=== PATIENT | male | born 1995 ===

== ENCOUNTER 2020-07-31 06:23 | Emergency (ER) | payer SELFPAY ==
[2020-07-31] MEDS ORDERED: Sodium Chloride 0.9% 2.5 ML Syringe FLUSH PRN ×2 (06:30→06:44)
[2020-07-31] MEDS ORDERED: Sodium Chloride 0.9% 10 ML Syringe FLUSH PRN ×2 (06:30→06:44)
--- NOTE | 2020-07-31 06:31 | EDM.PDOC ---
<Eliezer Machuca - Last Filed: 07/31/20 06:48> ED HPI GENERAL MEDICAL PROBLEM - General Chief Complaint: Abdominal Pain Stated Complaint: ABDOMINAL PAIN Time Seen by Provider: 07/31/20 06:29 - History of Present Illness INITIAL COMMENTS - FREE TEXT/NARRATIVE: History of present illness: [] Patient has pain in the left lower quadrant of his abdomen. He woke up feeling came in gradually pain started in the left lower quadrant of the abdomen since grown back crescendoing develops almost unbearable and severe. The patient has no nausea and vomiting. He has relative anorexia. He is not diaphoretic or febrile. The patient never had this pain before does not go anywhere. It is very severe. It hurts to push on it. It does not hurt to move or breathe. He has constipation recently and it is increasingly hard for him to make a normal stool. The patient has no diarrhea and no dysuria. Review of systems: As per history of present illness and below otherwise all systems reviewed and negative. Past medical history: As per history of present illness and as reviewed below otherwise noncontributory. Surgical history: As per history of present illness and as reviewed below otherwise noncontr ibutory. Social history: No reported history of drug or alcohol abuse. Family history: As per history of present illness and as reviewed below otherwise noncontributory. Physical exam: Constitutional - well developed, well-nourished and in no acute distress HEENT - normocephalic, no evidence of trauma - external nose and mouth normal - no mass in neck and no JVD - mucosae moist EYES - full EOM, PERRL, no icterus - no evidence of inflammation, injection, or drainage Respiratory - no respiratory distress, equal bilateral expansion, lungs clear to auscultation and no abnormal lung sounds Cardiovascular - Regular Rhythm with S1 and S2 appreciated and no murmur, gallop or rub. GI - abdomen soft without distension or organomegaly - normal bowel sounds - no guard or rebound-isolated tenderness in the left lower quadrant. -normal external genitalia with no hernia. Musculoskeletal no gross deformity of long bones or joints - no tenderness, swelling or edema Neurologic - Alert and oriented times four - CN II-XII grossly intact - motor sensory and coordination symmetrically normal Psychiatric - appropriate mood and affect with normal thought content Hematologic - No petechiae or purpura - mucosa appropriate color and sclera not pale - normal nail bed color and refill Integument - no rash or evidence of trauma - normal turgor Diagnostics: [] Therapeutics: [] Impression: [] Plan: [] Definitive disposition and diagnosis as appropriate pending reevaluation and review of above. Abdomen Pain Score (Numeric/FACES): 8 - Related Data Allergies Allergy/AdvReac Type Severity Reaction Status Date / Time No Known Allergies Allergy Verified 07/31/20 06:40 Home Meds: Home Meds Ibuprofen 600 mg PO Q6HR PRN #30 tablet 07/31/20 [Rx] Ondansetron [Zofran ODT] 4 mg PO Q6H PRN #12 tab.dis 07/31/20 [Rx] Tamsulosin HCl [Flomax] 0.4 mg PO BEDTIME #7 cap.er.24h 07/31/20 [Rx] traMADol [Ultram] 50 mg PO Q6H PRN #12 tab 07/31/20 [Rx] Departure - Departure Disposition: Home, Self-Care 01 Clinical Impression: Hydroureteronephrosis, Renal colic on left side - Discharge Information Instructions: Renal Colic, [id number], Kidney Stones, [id number] Referrals: PCP,None [Primary Care Provider] - Forms: ED Department Discharge Additional Instructions: You were seen and evaluated in ER today secondary to pain in your abdomen which is determined to be secondary to a 4.7 mm kidney stone that was lodged in your mid left ureter causing swelling of your kidney and your ureter. Kidney stones the size have a high success rate of passing on their own with hydration and pain medicines. He will be given a prescription for ibuprofen, Zofran, Ultram, and Flomax to take to help you pass your stone. You will be given the phone number for Dr. Wolf our urologist for further follow-up as an outpatient. The following information is given to patients seen in the emergency department who are being discharged to home. This information is to outline your options for follow-up care. We provide all patients seen in our emergency department with a follow-up referral. The need for follow-up, as well as the timing and circumstances, are variable depending upon the specifics of your emergency department visit. If you don't have a primary care physician on staff, we will provide you with a referral. We always advise you to contact your personal physician following an emergency department visit to inform them of the circumstance of the visit and for follow-up with them and/or the need for any referrals to a consulting specialist. The emergency department will also refer you to a specialist when appropriate. This referral assures that you have the opportunity for follow-up care with a specialist. All of these measure are taken in an effort to provide you with optimal care, which includes your follow-up. Under all circumstances we always encourage you to contact your private physician who remains a resource for coordinating your care. When calling for follow-up care, please make the office aware that this follow-up is from your recent emergency room visit. If for any reason you are refused follow-up, please contact the [facility] Emergency Department at and asked to speak to the emergency department charge nurse. [facility] - [facility] [address] [place] [id number] [place] [address] <Jefry Delcid - Last Filed: 07/31/20 08:26> ED HPI GENERAL MEDICAL PROBLEM - History of Present Illness INITIAL COMMENTS - FREE TEXT/NARRATIVE: 8:20 AM: Signout received at [address] Machuca note above for complete presentation history and physical. Patient presented to the ER today with acute onset of colicky pain to his left side in his back radiating to his left groin. Patient's urinalysis shows positive blood and a CT scan reveals left-sided hydronephrosis and hydroureter with a 4.7 mm stone in the mid left ureter. Otherwise no acute abnormality was appreciated. On reevaluation, the patient currently is pain-free and appears to be comfortable. Patient's pain appears to be secondary to renal colic with a 4.7 mm stone. Patient be discharged home with follow-up with Dr. Wolf. Patient be given ibuprofen, Zofran, Flomax, and Ultram to assist with pain and discomfort. Patient be given a strainer. Abd: Soft, nondistended, no rebound/guarding, no psoas or obturator signs, no tenderness at Mcberney's point, no Guerin's sign. Pt does not present with an exam that would be consistent with an acute surgical abdomen at this time, nontender to palpation Reassessment at the time of disposition demonstrates that the patient is in no acute distress. The patient has remained stable throughout the entire ED visit and is without objective evidence for acute process requiring urgent intervention or hospitalization. The patient is stable for discharge, counseling is provided as documented above, discussed symptomatic treatment and specific conditions for return. I have spoken with the patient/caregiver and discussed todays findings, in addition to providing specific details for the plan of care. Questions are answered and there is agreement with the plan. ED ROS GENERAL - Review of Systems Review Of Systems: See Below ED EXAM, GENERAL - Physical Exam Exam: See Below Course - Vital Signs Last Recorded V/S: Last Vital Signs Temp 96.5 F L 07/31/20 06:35 Pulse 51 L 07/31/20 07:38 Resp 16 07/31/20 07:38 BP 111/60 07/31/20 07:38 Pulse Ox 98 07/31/20 07:38 - Orders/Labs/Meds Orders: Active Orders 24 hr Category Date Time Status Sodium Chloride 0.9% [Saline Flush] Med 07/31/20 06:30 Active 10 ml FLUSH ASDIRECTED PRN Sodium Chloride 0.9% [Saline Flush] Med 07/31/20 06:30 Active 2.5 ml FLUSH ASDIRECTED PRN Saline Lock Insert [OM.PC] Stat Oth 07/31/20 06:30 Ordered Medication Orders Sodium Chloride (Sodium Chloride 0.9% 10 Ml Syringe) 10 ml FLUSH ASDIRECTED PRN PRN Reason: Keep Vein Open Sodium Chloride (Sodium Chloride 0.9% 2.5 Ml Syringe) 2.5 ml FLUSH ASDIRECTED PRN PRN Reason: Keep Vein Open Labs: Laboratory Tests 07/31/20 07/31/20 07/31/20 Range/Units 06:35 06:35 06:50 WBC 4.51 (4.0-11.0) K/uL RBC 5.23 (4.50-5.90) M/uL Hgb 16.1 (13.0-17.0) g/dL Hct 46.6 (38.0-50.0) % MCV 89.1 (80.0-98.0) fL MCH 30.8 (27.0-32.0) pg MCHC 34.5 (31.0-37.0) g/dL RDW Std Deviation 42.9 (28.0-62.0) fl RDW Coeff of Daksha 13 (11.0-15.0) % Plt Count 199 (150-400) K/uL MPV 11.20 (7.40-12.00) fL Neut % (Auto) 58.2 (48.0-80.0) % Lymph % (Auto) 30.2 (16.0-40.0) % [place] % (Auto) 8.2 (0.0-15.0) % Eos % (Auto) 2.7 (0.0-7.0) % Baso % (Auto) 0.7 (0.0-1.5) % Neut # (Auto) 2.6 (1.4-5.7) K/uL Lymph # (Auto) 1.4 (0.6-2.4) K/uL [place] # (Auto) 0.4 (0.0-0.8) K/uL Eos # (Auto) 0.1 (0.0-0.7) K/uL Baso # (Auto) 0.0 (0.0-0.1) K/uL Nucleated RBC % 0.0 /100WBC Nucleated RBCs # 0 K/uL Sodium 143 (136-148) mmol/L Potassium 4.3 (3.5-5.1) mmol/L Chloride 105 (98-107) mmol/L Carbon Dioxide 28.5 (21.0-32.0) mmol/L BUN 17 (7.0-18.0) mg/dL Creatinine 1.1 (0.8-1.3) mg/dL Est Cr Clr Drug Dosing 97.08 mL/min Estimated GFR (MDRD) > 60.0 ml/min Glucose 119 H (74-106) mg/dL Lactic Acid 1.5 (0.4-2.0) mmol/L Calcium 9.1 (8.5-10.1) mg/dL Total Bilirubin 0.7 (0.2-1.0) mg/dL AST 22 (15-37) IU/L ALT 50 (14-63) IU/L Alkaline Phosphatase 63 (46-116) U/L Total Protein 7.5 (6.4-8.2) g/dL Albumin 4.2 (3.4-5.0) g/dL Globulin 3.3 (2.6-4.0) g/dL Albumin/Globulin Ratio 1.3 (0.9-1.6) Lipase 51 L (73-393) U/L Urine Color Urine Appearance Urine pH (5.0-8.0) Ur Specific Bl[place] (1.001-1.035) Urine Protein (NEGATIVE) mg/dL Urine Glucose (UA) (NEGATIVE) mg/dL Urine Ketones (NEGATIVE) mg/dL Urine Occult Blood (NEGATIVE) Urine Nitrite (NEGATIVE) Urine Bilirubin (NEGATIVE) Urine Ictotest Urine Urobilinogen (<2.0) EU/dL Ur Leukocyte Esterase (NEGATIVE) Urine RBC (0-2/HPF) Urine WBC (0-5/HPF) Ur Epithelial Cells (NONE-FEW) Urine Bacteria (NEGATIVE) Urine Mucus (NONE-MOD) 07/31/20 Range/Units 07:57 WBC (4.0-11.0) K/uL RBC (4.50-5.90) M/uL Hgb (13.0-17.0) g/dL Hct (38.0-50.0) % MCV (80.0-98.0) fL MCH (27.0-32.0) pg MCHC (31.0-37.0) g/dL RDW Std Deviation (28.0-62.0) fl RDW Coeff of [place]sha (11.0-15.0) % Plt Count (150-400) K/uL MPV (7.40-12.00) fL Neut % (Auto) (48.0-80.0) % Lymph % (Auto) (16.0-40.0) % [place] % (Auto) (0.0-15.0) % Eos % (Auto) (0.0-7.0) % Baso % (Auto) (0.0-1.5) % Neut # (Auto) (1.4-5.7) K/uL Lymph # (Auto) (0.6-2.4) K/uL [place] # (Auto) (0.0-0.8) K/uL Eos # (Auto) (0.0-0.7) K/uL Baso # (Auto) (0.0-0.1) K/uL Nucleated RBC % /100WBC Nucleated RBCs # K/uL Sodium (136-148) mmol/L Potassium (3.5-5.1) mmol/L Chloride (98-107) mmol/L Carbon Dioxide (21.0-32.0) mmol/L BUN (7.0-18.0) mg/dL Creatinine (0.8-1.3) mg/dL Est Cr Clr Drug Dosing mL/min Estimated GFR (MDRD) ml/min Glucose (74-106) mg/dL Lactic Acid (0.4-2.0) mmol/L Calcium (8.5-10.1) mg/dL Total Bilirubin (0.2-1.0) mg/dL AST (15-37) IU/L ALT (14-63) IU/L Alkaline Phosphatase (46-116) U/L Total Protein (6.4-8.2) g/dL Albumin (3.4-5.0) g/dL Globulin (2.6-4.0) g/dL Albumin/Globulin Ratio (0.9-1.6) Lipase (73-393) U/L Urine Color YELLOW Urine Appearance CLEAR Urine pH 6.5 (5.0-8.0) Ur Specific [place] 1.025 (1.001-1.035) Urine Protein 30 H (NEGATIVE) mg/dL Urine Glucose (UA) NEGATIVE (NEGATIVE) mg/dL Urine Ketones NEGATIVE (NEGATIVE) mg/dL Urine Occult Blood LARGE H (NEGATIVE) Urine Nitrite NEGATIVE (NEGATIVE) Urine Bilirubin SMALL H (NEGATIVE) Urine Ictotest NEGATIVE Urine Urobilinogen 0.2 (<2.0) EU/dL Ur Leukocyte Esterase NEGATIVE (NEGATIVE) Urine RBC NONE SEEN (0-2/HPF) Urine WBC 0-1 (0-5/HPF) Ur Epithelial Cells OCCASIONAL (NONE-FEW) Urine Bacteria 1+ H (NEGATIVE) Urine Mucus LIGHT (NONE-MOD) Meds: Medications Generic Name Dose Route Start Last Admin Trade Name Freq PRN Reason Stop Dose Admin Sodium Chloride 10 ml 07/31/20 06:30 Sodium Chloride 0.9% 10 Ml Syringe FLUSH ASDIRECTED PRN Keep Vein Open Sodium Chloride 2.5 ml 07/31/20 06:30 Sodium Chloride 0.9% 2.5 Ml Syringe FLUSH ASDIRECTED PRN Keep Vein Open Discontinued Medications Generic Name Dose Route Start Last Admin Trade Name Kennedi PRN Reason Stop Dose Admin Fentanyl 50 mcg 07/31/20 06:44 07/31/20 06:55 Fentanyl 50 Mcg/Ml Sdv IVPUSH 07/31/20 06:45 50 mcg ONETIME ONE Administration Sodium Chloride 1,000 mls @ 1,000 mls/hr 07/31/20 06:47 07/31/20 06:55 Normal Saline IV 07/31/20 07:46 1,000 mls/hr .Bolus ONE Administration Ketorolac Tromethamine 15 mg 07/31/20 06:44 07/31/20 06:58 Ketorolac 15 Mg/Ml Sdv IM 07/31/20 06:45 Not Given ONETIME ONE Ketorolac Tromethamine 15 mg 07/31/20 06:48 07/31/20 06:57 Ketorolac 30 Mg/Ml Sdv IVPUSH 07/31/20 06:49 Not Given ONETIME ONE Ketorolac Tromethamine 15 mg 07/31/20 06:56 07/31/20 06:56 Ketorolac 15 Mg/Ml Sdv IVPUSH 07/31/20 06:57 15 mg NOW STA Administration Ondansetron HCl 4 mg 07/31/20 06:44 07/31/20 06:55 Ondansetron 4 Mg/2 Ml Sdv IVPUSH 07/31/20 06:45 4 mg ONETIME ONE Administration Sodium Chloride 10 ml 07/31/20 06:44 Sodium Chloride 0.9% 10 Ml Syringe FLUSH ASDIRECTED PRN Keep Vein Open Sodium Chloride 2.5 ml 07/31/20 06:44 Sodium Chloride 0.9% 2.5 Ml Syringe FLUSH ASDIRECTED PRN Keep Vein Open Tamsulosin HCl 0.4 mg 07/31/20 07:52 Tamsulosin 0.4 Mg Cap.Er PO 07/31/20 07:53 ONETIME ONE Departure - Departure Time of Disposition: 08:23 Condition: Good Sepsis Event Note (ED) - Focused Exam Vital Signs: Vital Signs Temp Pulse Resp BP Pulse Ox 07/31/20 07:38 51 L 16 111/60 98 07/31/20 06:35 96.5 F L 60 18 139/85 97
[2020-07-31] MEDS ORDERED: fentaNYL 50 MCG/ML SDV IVPUSH ONE (06:44)
[2020-07-31] MEDS ORDERED: Ondansetron 4 MG/2 ML SDV IVPUSH ONE (06:44)
[2020-07-31] MEDS ORDERED: Ketorolac 15 MG/ML SDV IM ONE (06:44)
[2020-07-31] MEDS ORDERED: Sodium Chloride 0.9% 1,000 ML IV ONE (06:47)
[2020-07-31] MEDS ORDERED: Ketorolac 30 MG/ML SDV IVPUSH ONE (06:48)
[2020-07-31] MEDS ORDERED: Ketorolac 15 MG/ML SDV IVPUSH STA (06:56)
[2020-07-31 07:15] LABS: BLOOD UREA NITROGEN,BUN 17 mg/dL (7.0-18.0); CARBON DIOXIDE,CO2 28.5 mmol/L (21.0-32.0); CHLORIDE,CL 105 mmol/L (98-107); GLUCOSE RANDOM 119 mg/dL (74-106); LIPASE 51 U/L (73-393); POTASSIUM,K 4.3 mmol/L (3.5-5.1); SODIUM,NA 143 mmol/L (136-148)
--- NOTE | 2020-07-31 07:29 | CT ---
For Patients: As a result of the Century Cures Act, medical imaging exams and procedure reports are released immediately into your electronic medical record. You may view this report before your referring provider. If you have questions, please contact your health care provider. Indication: Left lower quadrant pain Technique: Volumetric multidetector CT images of the abdomen and pelvis were without the administration of intravenous contrast. Comparison: None available. Findings: The lung bases are clear. The liver is normal in attenuation without intrahepatic biliary ductal dilatation. The gallbladder is unremarkable without evidence of radiopaque calculus. There is no significant common biliary ductal dilatation or abrupt cut off. The spleen is normal in attenuation and size. The stomach and duodenum are grossly unremarkable. The pancreas is normal in attenuation without significant atrophy. The adrenal glands are unremarkable. There is left-sided hydronephrosis and hydroureter with demonstration of a 4.7 millimeter calculus in the mid left ureter with associated hydronephrosis. The right collecting system is grossly unremarkable. There is moderate stool seen throughout the colon with mild to moderate colonic diverticulosis without evidence of diverticulitis. The appendix is unremarkable. There is no significant mesenteric, retroperitoneal, or pelvic sidewall lymph nodes. The aorta is nonaneurysmal. There is no significant atherosclerotic disease appreciated. The solid pelvic viscera are grossly unremarkable. There is no free fluid or free air. There is a small fat containing umbilical hernia otherwise there is mild diastasis of the rectus musculature. The lumbar vertebral body heights are grossly maintained in satisfactory alignment without evidence of displaced fracture, lytic or blastic lesion. Impression: Left-sided hydronephrosis and hydroureter with a 4.7 millimeter calculus in the midleft ureter. Otherwise no acute abnormality is appreciated. Please note that all CT scans at this facility use dose modulation, iterative reconstruction, and/or weight-based dosing when appropriate to reduce radiation dose to as low as reasonably achievable. Dictated by Morgan Bellamy MD @ 07/31/2020 7:27:[address] Morgan Bellamy @ Jul 31 2020 7:27AM
[2020-07-31] MEDS ORDERED: Tamsulosin 0.4 MG Cap.ER PO ONE (07:52)
== END 2020-07-31 08:42 | disposition home or self-care (01) ==
LOC: MW.ED 06:23
DX: N13.2 Hydronephrosis with renal and ureteral calculous obstruction (principal)
CPT/HCPCS: 36415; 74176; 80053; 81001; 83605; 83690; 85025; 96374; 96375; 99284; A9270; J1885; J2405; J3010; J7030

== ENCOUNTER 2020-09-06 07:39 | Emergency (ER) | payer SELFPAY ==
[2020-09-06] MEDS ORDERED: Ketorolac 15 MG/ML SDV IVPUSH ONE (08:01)
[2020-09-06] MEDS ORDERED: Sodium Chloride 0.9% 1,000 ML IV ONE (08:01)
[2020-09-06] MEDS ORDERED: Ondansetron 4 MG/2 ML SDV IVPUSH ONE (08:01)
[2020-09-06] MEDS ORDERED: Sodium Chloride 0.9% 10 ML Syringe FLUSH PRN (08:01)
[2020-09-06] MEDS ORDERED: Sodium Chloride 0.9% 2.5 ML Syringe FLUSH PRN (08:01)
--- NOTE | 2020-09-06 08:08 | EDM.PDOC ---
ED HPI GENERAL MEDICAL PROBLEM - General Chief Complaint: Flank Pain Stated Complaint: kidney stone Time Seen by Provider: 09/06/20 07:56 - History of Present Illness INITIAL COMMENTS - FREE TEXT/NARRATIVE: History of present illness: [] This patient was seen by myself on 05 August diagnosed with a left ureteral stone with colic. He had several days of pain that required narcotic pain medicine and then he felt better in the interim until 2 or 3 days ago he began to have excruciating pain in the left lower quadrant with nausea and inability to tolerate p.o. food or fluids. He has not urinated today. The pain is severe in the left hypogastrium without radiation to the testicle or the flank. 2 days ago he had a CT repeat and the stone was quite a bit larger over 6 mm at the UVJ and had not moved much since KUB prior visit. He went to [place] yesterday because we have no urologist in town he was referred to Dr. Jie Tran. He has not been able to see her yet. He is basically for 3 days been incapacitated by the pain and nausea. Review of systems: As per history of present illness and below otherwise all systems reviewed and negative. Past medical history: As per history of present illness and as reviewed below otherwise noncontributory. Surgical history: As per history of present illness and as reviewed below otherwise noncontributory. Social history: No reported history of drug or alcohol abuse. Family history: As per history of present illness and as reviewed below otherwise noncontributory. Physical exam: Constitutional - well developed, well-nourished and in moderate acute distress HEENT - normocephalic, no evidence of trauma - external nose and mouth normal - no mass in neck and no JVD - mucosae moist EYES - full EOM, PERRL, no icterus - no evidence of inflammation, injection, or drainage Respiratory - no respiratory distress, equal bilateral expansion, lungs clear to auscultation and no abnormal lung sounds Cardiovascular - Regular Rhythm with S1 and S2 appreciated and no murmur, gallop or rub. GI - abdomen soft without distension or organomegaly - normal bowel sounds - no guard or rebound Musculoskeletal no gross deformity of long bones or joints - no tenderness, swelling or edema Neurologic - Alert and oriented times four - CN II-XII grossly intact - motor sensory and coordination symmetrically normal Psychiatric - appropriate mood and affect with normal thought content Hematologic - No petechiae or purpura - mucosa appropriate color and sclera not pale - normal nail bed color and refill Integument - no rash or evidence of trauma - normal turgor Diagnostics: [] Therapeutics: [] Impression: [] Plan: [] Definitive disposition and diagnosis as appropriate pending reevaluation and review of above. flank Pain Score (Numeric/FACES): 10 - Related Data Allergies Allergy/AdvReac Type Severity Reaction Status Date / Time No Known Allergies Allergy Verified 09/06/20 07:57 Home Meds: Home Meds Ibuprofen 600 mg PO Q6HR PRN #30 tablet 07/31/20 [Rx] Ondansetron [Zofran ODT] 4 mg PO Q6H PRN #12 tab.dis 07/31/20 [Rx] Tamsulosin HCl [Flomax] 0.4 mg PO BEDTIME #7 cap.er.24h 07/31/20 [Rx] traMADol [Ultram] 50 mg PO Q6H PRN #12 tab 07/31/20 [Rx] Acetaminophen/oxyCODONE [Percocet 325-5 MG] 1 - 2 each PO Q4H PRN #30 tab 09/06/20 [Rx] Ondansetron [Zofran ODT] 4 mg PO Q6H PRN #15 tab.dis 09/06/20 [Rx] Past Medical History HEENT History: Reports: None Cardiovascular History: Reports: None Respiratory History: Reports: None Gastrointestinal History: Reports: None Genitourinary History: Reports: None Musculoskeletal History: Reports: None Neurological History: Reports: None Psychiatric History: Reports: None Endocrine/Metabolic History: Reports: None Insulin Pump Model and Residential Life Director: None Hematologic History: Reports: None Immunologic History: Reports: None Oncologic (Cancer) History: Reports: None Dermatologic History: Reports: None - Infectious Disease History Infectious Disease History: Reports: None - Past Surgical History Head Surgeries/Procedures: Reports: None Other Male Surgeries/Procedures: Kidney Stones Social & Family History - Tobacco Use Tobacco Use Status *Q: Never Tobacco User - Caffeine Use Caffeine Use: Reports: Energy Drinks - Recreational Drug Use Recreational Drug Use: No ED ROS GENERAL - Review of Systems Review Of Systems: Comprehensive ROS is negative, except as noted in HPI. ED EXAM, GENERAL - Physical Exam Exam: See Below Free Text/Narrative:: My physical exam is in the HPI Course - Vital Signs Text/Narrative:: 8:27 AM patient's pain is not improved. 12:02 PM the patient's pain was improved for bed but it is creeping back up. When I just talked him at 7 out of 10 1 on arrival was 10 out of 10. I have discussed the case with the staff at the urology clinic in my not. They intend to see the patient the day that he arrives in the emergency department. Yesterday when he got there he got a little better and the ER doctor did not contact the neurologist directly. I am waiting for callback to see if Dr. Tran can see the patient today. 1413 p.m. the patient has continual recurrent pain. I reviewed his recent discharge and he was given tramadol prescription. Discussed with Dr. Tran and she is booked in the OR in both in the clinic and overbooked in fact. She said she can get a man on the or and taken to the OR on the of this month. So that he might stay overnight for observation and be taken care of with one trip to [place] she gave him an appointment for 1315 hrs. at 14 September and will schedule OR time for the . Last Recorded V/S: Last Vital Signs Temp 36.6 C 09/06/20 07:56 Pulse 77 09/06/20 07:56 Resp 18 09/06/20 07:56 BP 144/85 H 09/06/20 07:56 Pulse Ox 100 09/06/20 07:56 - Orders/Labs/Meds Orders: Active Orders 24 hr Category Date Time Status Sodium Chloride 0.9% [Saline Flush] Med 09/06/20 08:01 Active 10 ml FLUSH ASDIRECTED PRN Sodium Chloride 0.9% [Saline Flush] Med 09/06/20 08:01 Active 2.5 ml FLUSH ASDIRECTED PRN Saline Lock Insert [OM.PC] Stat Oth 09/06/20 08:01 Ordered Medication Orders Sodium Chloride (Sodium Chloride 0.9% 10 Ml Syringe) 10 ml FLUSH ASDIRECTED PRN PRN Reason: Keep Vein Open Last Admin: 09/06/20 08:14 Dose: 10 ml Documented by: ALEXUS Sodium Chloride (Sodium Chloride 0.9% 2.5 Ml Syringe) 2.5 ml FLUSH ASDIRECTED PRN PRN Reason: Keep Vein Open Last Admin: 09/06/20 08:14 Dose: 2.5 ml Documented by: ALEXUS Labs: Laboratory Tests 09/06/20 09/06/20 09/06/20 Range/Units 08:22 08:22 10:10 WBC 7.37 (4.0-11.0) K/uL RBC 5.09 (4.50-5.90) M/uL Hgb 15.8 (13.0-17.0) g/dL Hct 45.6 (38.0-50.0) % MCV 89.6 (80.0-98.0) fL MCH 31.0 (27.0-32.0) pg MCHC 34.6 (31.0-37.0) g/dL RDW Std Deviation 42.7 (28.0-62.0) fl RDW Coeff of Daksha 13 (11.0-15.0) % Plt Count 201 (150-400) K/uL MPV 10.50 (7.40-12.00) fL Neut % (Auto) 82.0 H (48.0-80.0) % Lymph % (Auto) 11.9 L (16.0-40.0) % Rankin % (Auto) 5.4 (0.0-15.0) % Eos % (Auto) 0.4 (0.0-7.0) % Baso % (Auto) 0.3 (0.0-1.5) % Neut # (Auto) 6.0 H (1.4-5.7) K/uL Lymph # (Auto) 0.9 (0.6-2.4) K/uL Rankin # (Auto) 0.4 (0.0-0.8) K/uL Eos # (Auto) 0.0 (0.0-0.7) K/uL Baso # (Auto) 0.0 (0.0-0.1) K/uL Nucleated RBC % 0.0 /100WBC Nucleated RBCs # 0 K/uL Sodium 144 (136-148) mmol/L Potassium 4.0 (3.5-5.1) mmol/L Chloride 104 (98-107) mmol/L Carbon Dioxide 29.9 (21.0-32.0) mmol/L BUN 14 (7.0-18.0) mg/dL Creatinine 1.2 (0.8-1.3) mg/dL Est Cr Clr Drug Dosing 91.95 mL/min Estimated GFR (MDRD) > 60.0 ml/min Glucose 101 (74-106) mg/dL Calcium 9.1 (8.5-10.1) mg/dL Urine Color DARK YELLOW Urine Appearance CLEAR Urine pH 8.5 H (5.0-8.0) Ur Specific [place] 1.020 (1.001-1.035) Urine Protein 100 H (NEGATIVE) mg/dL Urine Glucose (UA) NEGATIVE (NEGATIVE) mg/dL Urine Ketones 15 H (NEGATIVE) mg/dL Urine Occult Blood LARGE H (NEGATIVE) Urine Nitrite NEGATIVE (NEGATIVE) Urine Bilirubin SMALL H (NEGATIVE) Urine Ictotest NEGATIVE Urine Urobilinogen 1.0 (<2.0) EU/dL Ur Leukocyte Esterase TRACE H (NEGATIVE) Urine RBC 10-15 (0-2/HPF) Urine WBC 0-2 (0-5/HPF) Ur Epithelial Cells RARE (NONE-FEW) Urine Bacteria FEW (NEGATIVE) Urine Mucus HEAVY (NONE-MOD) Meds: Medications Generic Name Dose Route Start Last Admin Trade Name Freregina PRN Reason Stop Dose Admin Sodium Chloride 10 ml 09/06/20 08:01 09/06/20 08:14 Sodium Chloride 0.9% 10 Ml Syringe FLUSH 10 ml ASDIRECTED PRN Administration Keep Vein Open Sodium Chloride 2.5 ml 09/06/20 08:01 09/06/20 08:14 Sodium Chloride 0.9% 2.5 Ml Syringe FLUSH 2.5 ml ASDIRECTED PRN Administration Keep Vein Open Discontinued Medications Generic Name Dose Route Start Last Admin Trade Name Freq PRN Reason Stop Dose Admin Hydromorphone HCl 1 mg 09/06/20 08:27 09/06/20 08:31 Hydromorphone 1 Mg/Ml Syringe IVPUSH 09/06/20 08:28 1 mg ONETIME ONE Administration Hydromorphone HCl 0.5 mg 09/06/20 12:01 09/06/20 12:06 Hydromorphone 2 Mg/Ml Syringe IVPUSH 09/06/20 12:02 0.5 mg ONETIME ONE Administration Sodium Chloride 1,000 mls @ 1,000 mls/hr 09/06/20 08:01 09/06/20 08:13 Normal Saline IV 09/06/20 09:00 1,000 mls/hr .Bolus ONE Administration Ketorolac Tromethamine 15 mg 09/06/20 08:01 09/06/20 08:13 Ketorolac 15 Mg/Ml Sdv IVPUSH 09/06/20 08:02 15 mg ONETIME ONE Administration Ondansetron HCl 4 mg 09/06/20 08:01 09/06/20 08:14 Ondansetron 4 Mg/2 Ml Sdv IVPUSH 09/06/20 08:02 4 mg ONETIME ONE Administration Departure - Departure Time of Disposition: 14:14 Disposition: Home, Self-Care 01 Condition: Good Clinical Impression: Ureteric colic - Discharge Information Prescriptions: Acetaminophen/oxyCODONE [Percocet 325-5 MG] 1 - 2 each PO Q4H PRN #30 tab PRN Reason: Pain (Severe 7-10) Ondansetron [Zofran ODT] 4 mg PO Q6H PRN #15 tab.dis PRN Reason: Nausea/Vomiting Referrals: PCP,None [Primary Care Provider] - Jie Tran DO [Ordering Only Provider] - Forms: ED Department Discharge Additional Instructions: Dr. Tran can take you to the OR and get rid of your stone on the of this month. She said you can come on the at 1315 to her office and she will put you in observation overnight in my not and then take care of your stone. Her number [phone] and she wants to see you at 1315 hrs. on the at the [facility]. [facility] [address] [place] [id number] [facility] [address] [place] [id number] The following information is given to patients seen in the emergency department who are being discharged to home. This information is to outline your options for follow-up care. We provide all patients seen in our emergency department with a follow-up referral. The need for follow-up, as well as the timing and circumstances, are variable depending upon the specifics of your emergency department visit. If you don't have a primary care physician on staff, we will provide you with a referral. We always advise you to contact your personal physician following an emergency department visit to inform them of the circumstance of the visit and for follow-up with them and/or the need for any referrals to a consulting specialist. The emergency department will also refer you to a specialist when appropriate. This referral assures that you have the opportunity for follow-up care with a specialist. All of these measure are taken in an effort to provide you with optimal care, which includes your follow-up. Under all circumstances we always encourage you to contact your private physician who remains a resource for coordinating your care. When calling for follow-up care, please make the office aware that this follow-up is from your recent emergency room visit. If for any reason you are refused follow-up, please contact the [facility] Emergency Department at and asked to speak to the emergency department charge nurse. Sepsis Event Note (ED) - Evaluation Sepsis Screening Result: No Definite Risk - Focused Exam Vital Signs: Vital Signs Temp Pulse Resp BP Pulse Ox 09/06/20 07:56 36.6 C 77 18 144/85 H 100 - My Orders Last 24 Hours: My Active Orders 09/06/20 08:01 Sodium Chloride 0.9% [Saline Flush] 10 ml FLUSH ASDIRECTED PRN Sodium Chloride 0.9% [Saline Flush] 2.5 ml FLUSH ASDIRECTED PRN Saline Lock Insert [OM.PC] Stat - Assessment/Plan Last 24 Hours: My Active Orders 09/06/20 08:01 Sodium Chloride 0.9% [Saline Flush] 10 ml FLUSH ASDIRECTED PRN Sodium Chloride 0.9% [Saline Flush] 2.5 ml FLUSH ASDIRECTED PRN Saline Lock Insert [OM.PC] Stat
[2020-09-06] MEDS ORDERED: HYDROmorphone 1 MG/ML Syringe IVPUSH ONE (08:27)
[2020-09-06 11:01] LABS: BLOOD UREA NITROGEN,BUN 14 mg/dL (7.0-18.0); CARBON DIOXIDE,CO2 29.9 mmol/L (21.0-32.0); CHLORIDE,CL 104 mmol/L (98-107); GLUCOSE RANDOM 101 mg/dL (74-106); SODIUM,NA 144 mmol/L (136-148)
[2020-09-06] MEDS ORDERED: HYDROmorphone 2 MG/ML Syringe IVPUSH ONE (12:01)
== END 2020-09-06 14:26 | disposition home or self-care (01) ==
LOC: MW.ED 07:39
DX: N20.1 Calculus of ureter (principal)
CPT/HCPCS: 36415; 80048; 81001; 85025; 96374; 96375; 96376; 99284; J1170; J1885; J2405; J7030

== ENCOUNTER 2024-11-07 00:49 | Emergency (ER) | payer SELFPAY | END 2024-11-07 01:08 | disposition left against medical advice (07) | LOC: MW.ED 00:49 | DX: Z53.21 Procedure and treatment not carried out due to patient leaving prior to being seen by health care provider (principal) ==

== ENCOUNTER 2024-11-07 01:14 | Emergency (ER) | payer SELFPAY | END 2024-11-07 01:30 | disposition left against medical advice (07) | LOC: MW.ED 01:14 | DX: Z53.21 Procedure and treatment not carried out due to patient leaving prior to being seen by health care provider (principal) ==